=== PATIENT | female | born 1965 | race Caucasian/White ===

== ENCOUNTER 2018-05-24 07:56 | Outpatient (CLI) | payer OTHER | END 2018-05-24 07:59 | disposition home or self-care (01) | LOC: SONOGRAMA 07:56 | DX: E04.1 Nontoxic single thyroid nodule (principal) ==

== ENCOUNTER 2023-01-19 14:43 | Outpatient (CLI) | payer OTHER | END 2023-01-19 14:49 | disposition home or self-care (01) | LOC: SONOGRAMA 14:43 | PROVIDERS: ATTEND Pathology Anatomic Pathology & Clinical Pathology | DX: D34 Benign neoplasm of thyroid gland (principal) ==

== ENCOUNTER 2024-01-08 08:37 | Outpatient (CLI) | payer OTHER | END 2024-01-08 08:42 | disposition home or self-care (01) | LOC: SONOGRAMA 08:37 | PROVIDERS: ATTEND Pathology Anatomic Pathology & Clinical Pathology | DX: D44.0 Neoplasm of uncertain behavior of thyroid gland (principal); E04.1 Nontoxic single thyroid nodule ==